=== PATIENT | female | born 1985 | race Caucasian/White ===

== ENCOUNTER 2022-04-26 10:53 | Emergency (ER) | payer OTHER ==
[~2022-04-26] VITALS: Ht 162.5 cm; Wt 72.6 kg
[2022-04-26 11:35] LABS: BASO # 0.1 10*3/uL (0.0-0.1); BASO % 0.7 % (0.0-1.0); EOS # 0.1 10*3/uL (0.0-0.4); EOS % 1.1 % (1.0-4.0); HEMATOCRIT 40.1 % (37.0-47.0); LYMPH # 1.8 10*3/uL (1.3-4.4); LYMPH % 21.8 % (27.0-41.0); MEAN CELL VOLUME 88.3 fl (81.0-99.0); MEAN CORPUSCULAR HGB 28.6 pg (27.0-31.0); MEAN CORPUSCULAR HGB CONC 32.4 g/dl (33.0-37.0); MEAN PLATELET VOLUME 10.1 fl (9.6-12.3); MONO # 0.5 10*3/uL (0.1-1.0); NEUT # 5.8 10*3/uL (2.3-7.9); NEUT % 70.2 % (47.0-73.0); PLATELET COUNT AUTOMATED 291 10*3/uL (130-400); RED BLOOD COUNT 4.54 10*6/uL (4.10-5.10); RED CELL DISTRI WIDTH 14.4 % (0-14.5); WHITE BLOOD COUNT 8.3 10*3/uL (4.8-10.8)
[2022-04-26 11:57] LABS: ALKALINE PHOSPHATASE 55 U/L (46-116); BUN 9 mg/dl (9-23); CHLORIDE 106 mmol/L (98-107); LIPASE 29 U/L (12-53); POTASSIUM 4.3 mmol/L (3.4-5.1); SGPT/ALT 11 U/L (10-49); TOTAL PROTEIN 7.3 gm/dL (6.0-8.0)
[2022-04-26 12:08] LABS: BILIRUBIN Negative (Negative); BLOOD 3+ (Negative); CLARITY Clear (Clear); COLOR Yellow (Yellow); GLUCOSE Negative (Negative); KETONE Negative (Negative); LEUKO ESTERASE Negative (Negative); NITRITE Negative (Negative); PH 6.5 (4.5-8.0); SPECIFIC GRAVITY <= 1.005 (1.001-1.030); UROBILINOGEN 0.2 E.U./dl (0.0-1.0)
[2022-04-26 12:17] LABS: BACTERIA 1+
== END 2022-04-26 13:38 | disposition home or self-care (01) ==
LOC: ED 10:53
PROVIDERS: Nurse Practitioner Family
DX: R10.31 Right lower quadrant pain (principal)

== ENCOUNTER → 2024-08-30 | Outpatient (CLI) | payer OTHER ==
[2024-08-30 15:36] LABS: FREE T4 0.94 ng/dl (0.89-1.76)
== END | disposition home or self-care (01) ==
LOC: LAB 14:40
PROVIDERS: Student in an Organized Health Care Education/Training Program; ATTEND Family Medicine
DX: E03.9 Hypothyroidism, unspecified (principal); R53.83 Other fatigue

== ENCOUNTER → 2024-12-05 | Outpatient (CLI) | payer OTHER ==
[2024-12-05 15:37] LABS: FREE T4 1.23 ng/dl (0.89-1.76)
== END | disposition home or self-care (01) ==
LOC: LAB 14:51
PROVIDERS: Student in an Organized Health Care Education/Training Program; ATTEND Internal Medicine Endocrinology, Diabetes & Metabolism
DX: E06.3 Autoimmune thyroiditis (principal)